=== PATIENT | male | born 1985 | race Caucasian/White ===

== ENCOUNTER 2017-10-28 18:04 | Emergency (ER) | payer OTHER ==
[~2017-10-28] VITALS: Ht 182.9 cm; Wt 59.0 kg
[~2017-10-28 18:04] MED LIST: ALBUTEROL NEBS; AMBIEN5 MG PO; CREON DR 24,001 EACH PO; CREON DR 6,000 U1 EA PO; LORAZEPAM1 MG PO; NEXIUM20 MG PO; NORCO 10MG-325MG1 EA PO; NORCO 7.5-3251 EACH PO; PANTOPRAZOLE SO40 MG PO; PEPCID20 MG PO; PROAIR HFA INH8.5 GM INH; ZITHROMAX250 MG; ZOFRAN ODT4 MG SL
[2017-10-28] MEDS ORDERED: ONDANSETRON HCL INJ 2 MG/ML VIAL IV STA (18:20)
[2017-10-28] MEDS ORDERED: SODIUM CHLORIDE 0.9% 1000ML 1,000 ML IV STA (18:20)
[2017-10-28] MEDS ORDERED: DIATRIZOATE MEGL/DIATRIZOA SOD 30 ML BTL PO ONE (18:43)
[2017-10-28] MEDS ORDERED: MORPHINE SULFATE 5 MG/ML VIAL IV ONE (19:00)
== END 2017-10-28 20:45 | disposition left against medical advice (07) ==
LOC: ER 18:04
DX: Z53.21 Procedure and treatment not carried out due to patient leaving prior to being seen by health care provider (principal)
CPT/HCPCS: 99284; J2405; J7030

== ENCOUNTER 2017-12-11 03:20 | Emergency (ER) | payer OTHER ==
[~2017-12-11] VITALS: Ht 182.9 cm; Wt 56.7 kg
--- OUTSIDE RECORDS SUMMARY | 2017-12-11 03:24 | XMS REPORT ---
Author Author [facility] Address Unknown Phone Unavailable Care Team Providers Care Project Management Engineer Name Role Phone Unavailable Unavailable Problems This patient has no known problems. Allergies, Adverse Reactions, Alerts This patient has no known allergies or adverse reactions. Medications This patient has no known medications. Results Test Description Test Time Test Comments Text Results Atomic Results Result Comments HEPATIC FUNCTION PANEL 2017-01-26 18:42:00 TOTAL PROTEIN (BEAKER) (test qoub=177) 7.8 gm/dL 6.0-8.3 ALBUMIN (BEAKER) (test osdr=9662) 4.6 g/dL 3.5-5.0 BILIRUBIN TOTAL (BEAKER) (test fyma=961) 0.7 mg/dL 0.2-1.2 BILIRUBIN DIRECT (BEAKER) (test fddr=449) 0.3 mg/dL 0.1-0.5 ALKALINE PHOSPHATASE (BEAKER) (test hxax=233) 56 U/L 40-150 AST (SGOT) (BEAKER) (test wmtu=827) 17 U/L 5-34 ALT (SGPT) (BEAKER) (test bajr=967) 17 U/L 6-55 [id number] 18:33:00* Test Item Value Reference Range Comments LIPASE (BEAKER) (test bven=257) 71 U/L 8-78 [id number] 18:33:00* Test Item Value Reference Range Comments AMYLASE (BEAKER) (test qcco=136) 123 U/L 25-125 BASIC METABOLIC [id number] 18:33:00* Test Item Value Reference Range Comments SODIUM (BEAKER) (test bekz=765) 141 meq/L 136-145 POTASSIUM (BEAKER) (test ufdr=161) 4.4 meq/L 3.5-5.1 CHLORIDE (BEAKER) (test bgnu=748) 104 meq/L 98-107 CO2 (BEAKER) (test zpno=584) 29 meq/L 22-29 BLOOD UREA NITROGEN (BEAKER) (test ztjn=408) 15 mg/dL 7-21 CREATININE (BEAKER) (test ttgf=654) 1.06 mg/dL 0.57-1.25 GLUCOSE RANDOM (BEAKER) (test okob=172) 97 mg/dL 70-105 CALCIUM (BEAKER) (test vpmu=943) 9.4 mg/dL 8.4-10.2 EGFR (BEAKER) (test jfhb=4477) 81 mL/min/1.73 sq m ESTIMATED GFR IS NOT ACCURATE CREATININE CLEARANCE IN PREDICTING GLOMERULAR FILTRATION RATE. ESTIMATED GFR IS NOT APPLICABLE FOR DIALYSIS PATIENTS. CBC W/PLT COUNT & AUTO [id number] 18:24:00* Test Item Value Reference Range Comments WHITE BLOOD CELL COUNT (BEAKER) (test zohg=794) 7.9 K/ L 4.0-10.0 RED BLOOD CELL COUNT (BEAKER) (test cviz=574) 4.38 M/ L 4.20-5.80 HEMOGLOBIN (BEAKER) (test qqrc=373) 13.7 GM/DL 13.0-16.8 HEMATOCRIT (BEAKER) (test khaa=793) 42.1 % 40.0-50.0 MEAN CORPUSCULAR VOLUME (BEAKER) (test uxaf=895) 96.1 fL 82.0-98.0 MEAN CORPUSCULAR HEMOGLOBIN (BEAKER) (test oqsg=840) 31.3 pg 27.0-33.0 MEAN CORPUSCULAR HEMOGLOBIN CONC (BEAKER) (test znyz=673) 32.6 GM/DL 32.0- 36.0 RED CELL DISTRIBUTION WIDTH (BEAKER) (test fqez=116) 12.7 % 10.3-14.2 PLATELET COUNT (BEAKER) (test myqv=900) 240 K/CU MM 150-430 MEAN PLATELET VOLUME (BEAKER) (test ncnt=057) 7.9 fL 6.5-10.5 NUCLEATED RED BLOOD CELLS (BEAKER) (test ahbf=883) 0 /100 WBC 0-0 NEUTROPHILS RELATIVE PERCENT (BEAKER) (test imyc=260) 45 % LYMPHOCYTES RELATIVE PERCENT (BEAKER) (test itgz=802) 38 % MONOCYTES RELATIVE PERCENT (BEAKER) (test grgr=736) 10 % EOSINOPHILS RELATIVE PERCENT (BEAKER) (test lvsc=512) 6 % BASOPHILS RELATIVE PERCENT (BEAKER) (test hfff=121) 1 % NEUTROPHILS ABSOLUTE COUNT (BEAKER) (test juwo=672) 3.56 K/ L 1.80-8.00 LYMPHOCYTES ABSOLUTE COUNT (BEAKER) (test doth=948) 3.00 K/ L 1.48-4.50 MONOCYTES ABSOLUTE COUNT (BEAKER) (test sgsz=264) 0.79 K/ L 0.00-1.30 EOSINOPHILS ABSOLUTE COUNT (BEAKER) (test dqhq=841) 0.49 K/ L 0.00-0.50 BASOPHILS ABSOLUTE COUNT (BEAKER) (test ujnr=895) 0.10 K/ L 0.00-0.20 0.00
--- OUTSIDE RECORDS SUMMARY | 2017-12-11 03:24 | XMS REPORT | Clinical Summary ---
Author Author [facility] Address Unknown Phone Unavailable Care Team Providers Care Silver [employer] Assembler Name Role Phone PCP Unavailable Allergies Active Allergy Reactions Severity Noted Date Comments Penicillins Other (See Comments) High 05/03/2013 Unknown reaction Morphine 01/26/2017 Seizures Current Medications Prescription Sig. Disp. Refills Start End Date Status Date LIPASE/PROTEASE/AMYLASE Take 3 tablets by mouth 3 Active (CREON ORAL) (three) times daily before meals. dicyclomine (BENTYL) 20 Take 20 mg by mouth every Active mg tablet 6 (six) hours. Active Problems Problem Noted Date Acute pancreatitis, unspecified pancreatitis type 02/27/2016 Epigastric pain 06/05/2013 Nausea & vomiting 06/05/2013 Diarrhea 06/04/2013 Colitis 06/03/2013 Chronic pancreatitis 05/08/2013 Pain 05/08/2013 Abdominal pain 05/04/2013 Encounters Date Type Specialty Care Team Description 01/26/2017 Emergency Emergency Medicine - 01/27/2017 after 12/10/2016 Social History Tobacco Use Types Packs/Day Years Used Date Former Smoker Smokeless Tobacco: Never Used Tobacco Cessation: Ready to Quit: Yes Alcohol Use Drinks/Week oz/Week Comments No Sex Assigned at Date Recorded Not on file Last Filed Vital Signs Vital Sign Reading Time Taken Blood Pressure 134/76 01/26/2017 6:00 PM CDT Pulse 65 01/26/2017 6:00 PM CDT Temperature 36.7 C (98 F) 01/26/2017 6:00 PM CDT Respiratory Rate 18 01/26/2017 6:00 PM CDT Oxygen Saturation 100% 01/26/2017 6:00 PM CDT Inhaled Oxygen - - Concentration Weight 58.1 kg (128 lb) 01/26/2017 6:00 PM CDT Height 182.9 cm (6') 01/26/2017 6:00 PM CDT Body Mass Index 17.36 01/26/2017 6:00 PM CDT Plan of Treatment Not on file Implants Implanted Type Area Drill Sharpener Operator Device Expiration Model / Identifier Date Serial / Lot Stent,Pancreatic Set Geenen Pe 5fr Stents-Per N/A: [employer] 03/08/2015 [id number] / 7cm Gw .035 Positioner Double Ended ipheral Duct / Flaps - [id number] Implanted: Qty: 1 on 06/05/2013 by Ana Singh MD Results * CBC with platelet count + automated diff (01/26/2017 6:09 PM) Component Value Ref Range WBC 7.9 4.0 - 10.0 K/ L RBC 4.38 4.20 - 5.80 M/ L Hemoglobin 13.7 13.0 - 16.8 GM/DL Hematocrit 42.1 40.0 - 50.0 % MCV 96.1 82.0 - 98.0 fL MCH 31.3 27.0 - 33.0 pg MCHC 32.6 32.0 - 36.0 GM/DL RDW 12.7 10.3 - 14.2 % Platelets 240 150 - 430 K/CU MM MPV 7.9 6.5 - 10.5 fL nRBC 0 0 - 0 /100 WBC % Neutros 45 % % Lymphs 38 % % Monos 10 % % Eos 6 % % Baso 1 % # Neutros 3.56 1.80 - 8.00 K/ L # Lymphs 3.00 1.48 - 4.50 K/ L # Monos 0.79 0.00 - 1.30 K/ L # Eos 0.49 0.00 - 0.50 K/ L # Baso 0.10 0.00 - 0.20 K/ L Specimen Performing Laboratory Blood - Arm, Right [address] [place] [address] Narrative 0.00 * CBC with platelet count + automated diff (01/26/2017 6:09 PM) Specimen Performing Laboratory Blood Narrative The following orders were created for panel order CBC with platelet count + automated diff. Procedure Abnormality Status --------- - ------ CBC with platelet count ...[[id number]] Final result Please view results for these tests on the individual orders. * Lipase (01/26/2017 6:09 PM) Component Value Ref Range Lipase 71 8 - 78 U/L Specimen Performing Laboratory Blood - Arm, [place] [address] * Amylase (01/26/2017 6:09 PM) Component Value Ref Range Amylase 123 25 - 125 U/L Specimen Performing Laboratory Blood - Arm, [place] [id number] * Liver Panel (01/26/2017 6:09 PM) Component Value Ref Range Protein, Total 7.8 6.0 - 8.3 gm/dL Albumin 4.6 3.5 - 5.0 g/dL Total Bilirubin 0.7 0.2 - 1.2 mg/dL Bilirubin, Direct 0.3 0.1 - 0.5 mg/dL Alkaline Phosphatase 56 40 - 150 U/L AST 17 5 - 34 U/L ALT 17 6 - 55 U/L Specimen Performing Laboratory Blood - Arm, [place] [id number] * Basic metabolic panel (Na, K+, Cl, CO2, Glu, Ca, BUN, Cr) (01/26/2017 6:09 PM ) Component Value Ref Range Sodium 141 136 - 145 meq/L Potassium 4.4 3.5 - 5.1 meq/L Chloride 104 98 - 107 meq/L CO2 29 22 - 29 meq/L BUN 15 7 - 21 mg/dL Creatinine 1.06 0.57 - 1.25 mg/dL Glucose 97 70 - 105 mg/dL Calcium 9.4 8.4 - 10.2 mg/dL EGFR 81Comment: ESTIMATED GFR IS NOT ACCURATE mL/min/1.73 sq m CREATININE CLEARANCE IN PREDICTING GLOMERULAR FILTRATION RATE. ESTIMATED GFR IS NOT APPLICABLE FOR DIALYSIS PATIENTS. Specimen Performing Laboratory Blood - Arm, [address] [address] after 12/10/2016
--- OUTSIDE RECORDS SUMMARY | 2017-12-11 03:24 | XMS REPORT | Clinical Summary ---
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 Disp. Refills Start End Date Status Date pancrelipase, Take 72,000 units of Active wlndfh-pwcogeyp-ibvbtlc, lipase by mouth 3 (three) (CREON) 24,000-76,000 times a day with meals. -120,000 unit capsule,delayed release(DR/EC) capsule zolpidem (AMBIEN) 10 mg Take 10 mg by mouth Active tablet nightly. ALPRAZolam (XANAX) 2 MG Take 2 mg by mouth 2 Active tablet (two) times a day as needed for anxiety. CIPROFLOXACIN/CIPROFLOXA Take by mouth. Active HCL (CIPROFLOXACIN, MIXTURE, ORAL) dicyclomine (BENTYL) 10 Take 10 mg by mouth 4 Active MG capsule (four) times a day before meals and nightly. ondansetron (ZOFRAN) 8 MG Take 8 mg by mouth every Active tablet 8 (eight) hours as needed for nausea or vomiting. promethazine (PHENERGAN) Insert 25 mg into the Active 25 MG suppository rectum every 6 (six) hours as needed for nausea or vomiting. ondansetron ODT (ZOFRAN Take 1 tablet (4 mg 10 tablet 0 12/10/01/25 Active ODT) 4 MG disintegrating total) by mouth every 8 18 18 tablet (eight) hours as needed for nausea or vomiting for up to 30 days. traMADol (ULTRAM) 50 mg Take 1 tablet (50 mg 20 tablet 0 04/30/ tablet total) by mouth every 8 17 17 (eight) hours as needed for moderate pain for up to 20 days. promethazine (PHENERGAN) Insert 1 suppository (25 10 0 04/30/20 25 MG suppository mg total) into the rectum suppository 17 17 every 6 (six) hours as needed for nausea or vomiting for up to 30 days. CLINDAMYCIN HCL ORAL Take by mouth. 06/10/20 Discontin 17 ued metroNIDAZOLE (FLAGYL) Take 1 tablet (500 mg 42 tablet 0 06/10/20 500 MG tablet total) by mouth 3 (three) 17 17 times a day for 14 days. metoclopramide (REGLAN) Take 1 tablet (10 mg 30 tablet 0 06/10/20 10 MG tablet total) by mouth every 6 17 17 (six) hours for 30 days. Active Problems Problem Noted Date Acute on chronic pancreatitis 11/30/2017 Enteritis 06/11/2017 Abdominal pain 06/10/2017 Idiopathic acute pancreatitis 12/05/2016 Encounters Date Type Specialty Care Team Description 12/10/2017 Emergency Emergency Medicine Rafael Tracy DO Generalized abdominal pain (Primary Dx); Polysubstance abuse 11/30/2017 Emergency General Internal Medicine Rafael Tracy DO Acute on chronic Alee Blevins MD pancreatitis (Primary Dx) 06/09/2017 [facility] General Internal Medicine Tono Healy, Abdominal pain, - Encounter MD unspecified location 06/12/2017 Beckie Sanders MD (Primary Dx); C. difficile colitis 04/29/2017 Emergency Emergency Medicine Ravinder English, Chronic pain syndrome - (Primary Dx); 04/30/2017 Generalized abdominal pain 02/12/2017 Hospital Emergency Medicine Physician, Emergency, Encounter AshtynrerMacario DO 01/18/2017 [facility] Emergency Medicine Physician, Emergency, Encounter Jose De Jesus Jansen MD 12/27/2016 Documentation General Surgery Paulina Milligan RN after 12/10/2016 Family History Medical History Relation Name Comments Colon cancer Father Multiple sclerosis Mother Relation Name Status Comments Father Mother Social History Tobacco Use Types Packs/Day Years Used Date Former Smoker Smokeless Tobacco: Never Used Alcohol Use Drinks/Week oz/Week Comments No Sex Assigned at Date Recorded Not on file Last Filed Vital Signs Vital Sign Reading Time Taken Blood Pressure 163/96 12/10/2017 8:03 PM VENDOR ANALYST Pulse 65 12/10/2017 8:03 PM VENDOR ANALYST Temperature 36.8 C (98.3 F) 12/10/2017 8:03 PM VENDOR ANALYST Respiratory Rate 20 12/10/2017 8:03 PM VENDOR ANALYST Oxygen Saturation 98% 12/10/2017 8:03 PM VENDOR ANALYST Inhaled Oxygen - - Concentration Weight 64 kg (141 lb) 06/10/2017 1:00 PM CDT Height 182.9 cm (6') 11/30/2017 12:41 AM VENDOR ANALYST Body Mass Index 19.12 06/10/2017 1:00 PM CDT Plan of Treatment Health Maintenance Due Date Last Done Comments INFLUENZA VACCINE 05/08/2017 Results * Urinalysis screen and microscopy, with reflex to culture (12/10/2017 9:37 PM) Only the most recent of 3 results within the time period is included. Component Value Ref Range Specimen site Clean catch Color, UA Straw Appearance, UA Clear Specific gravity, UA 1.004 1.001 - 1.035 pH, UA 9.0 5.0 - 8.5 Protein, UA Negative Negative Glucose, UA Negative Negative Ketones, UA Negative Negative Bilirubin, UA Negative Negative Blood, UA Negative Negative Nitrite, UA Negative Negative Urobilinogen, UA Negative <2.0 Leukocyte esterase, UA Negative Negative WBC, UA None seen 0 - 1 /HPF RBC, UA 0-5 0 - 1 /HPF Bacteria, UA None seen None seen Yeast, UA None seen Yeast with pseudohyphae, None seen UA Specimen Performing Laboratory Urine [facility] DEPARTMENT OF PATHOLOGY AND GENOMIC MEDICINE [address] [place] [address] * Estimated GFR (12/10/2017 9:37 PM) Only the most recent of 7 results within the time period is included. Component Value Ref Range GFR Non Af Amer >90 mL/min/1.73 m2 GFR Af Amer >90 mL/min/1.73 m2 Comment: Chronic kidney disease: <60 mL/min/1.73m2 Kidney failure: <15 mL/min/1.73m2 The estimated GFR is calculated from the IDMS-traceable Modification of Diet in Renal Disease Equation. The accuracy of the calculation is poor when the creatinine is normal. Calculated values >90 mL/min/1.73m2 are not reported. This equation has not been validated in children (<18 years), women, the elderly (>70 years), or ethnic groups other than Caucasians and Americans. Specimen Performing Laboratory Plasma specimen [facility] DEPARTMENT OF PATHOLOGY AND [address] [place] [address] * Urine drugs of abuse screen (12/10/2017 9:37 PM) Only the most recent of 2 results within the time period is included. Component Value Ref Range Amphetamine screen, urine Negative Methamphetamine screen, Negative urine Barbiturate screen, urine Negative Benzodiazepine screen, Positive (A) urine Cocaine screen, urine Negative Methadone screen, urine Negative Opiates screen, urine Negative Phencyclidine screen, Negative urine Cannabinoid screen, urine Positive (A) Tricyclic screen, urine Negative Comment: Drug screen minimum concentration of detectability Amphetamines 1000 ng/mL Methamphetamines 1000 ng/mL Barbiturates 300 ng/mL Benzodiazepines 300 ng/mL Cocaine 300 ng/mL Methadone 3 00 ng/mL Opiates 300 ng/mL Phencyclidine 25 ng/mL Cannabinoids 50 ng/mL Tricyclics 1000 ng/mL Negative test results indicates presumptive evidence of lack of clinically significant drug concentration in this urine specimen. Positive test results are presumptive evidence of clinically significant drug concentration in this urine specimen. Testing performed for medical purposes only. Specimen Performing Laboratory Urine [facility] PATHOLOGY [address] [place] [address] * Partial thromboplastin time, activated (12/10/2017 9:37 PM) Component Value Ref Range PTT 30.4 23.0 - 36.0 sec Comment: PTT therapeutic range for unfractionated heparin is 61.0-112.0 seconds which corresponds to Anti-Xa 0.3-0.7 U/ml. Specimen Performing Laboratory Blood [facility] PATHOLOGY AND [address] [facility] [id number] [place] [address] [place] [address] * Prothrombin time with INR (12/10/2017 9:37 PM) Component Value Ref Range Prothrombin time 13.2 12.0 - 15.0 sec INR 1.0 Comment: The International Normalized Ratio (INR) is a therapeutic monitoring tool for patients who are stable on oral anticoagulant therapy. An INR of 2.0-3.0 is suggested for deep vein thrombosis/pulmonary embolism. Specimen Performing Laboratory Blood [facility] PATHOLOGY AND [facility] [id number] [place] [address] [place] [address] * Urine culture (12/10/2017 9:37 PM) Only the most recent of 2 results within the time period is included. Component Value Ref Range Urine culture SEE COMMENTComment: Bacteriuria screen negative. Specimen Performing Laboratory Urine [facility] PATHOLOGY AND [facility] [id number] [place] [address] [place] [address] * Lipase level (12/10/2017 9:37 PM) Only the most recent of 7 results within the time period is included. Component Value Ref Range Lipase 58 13 - 60 U/L Specimen Performing Laboratory Plasma specimen [facility] [address] [place] [address] * Comprehensive metabolic panel (12/10/2017 9:37 PM) Only the most recent of 6 results within the time period is included. Component Value Ref Range Sodium 140 135 - 148 mEq/L Potassium 3.6 3.5 - 5.0 mEq/L Chloride 99 98 - 112 mEq/L CO2 29 24 - 31 mEq/L Anion gap 12 7 - 15 mEq/L Comment: Starting from January , anion gap calculation no longer incorporates potassium. Please note the change. BUN 7 6 - 20 mg/dL Creatinine 0.9 0.7 - 1.2 mg/dL Glucose 90 65 - 99 mg/dL Calcium 9.9 8.3 - 10.2 mg/dL Protein 7.7 6.3 - 8.3 g/dL Comment: 4.6-7.0 g/dL 1 week 4.4-7.6 g/dL 7 months-1year 5.1-7.3 g/dL 1-2 years 5.6-7.5 g/dL >3 years 6.0-8.0 g/dL 18-150 6.3-8.3 g/dL Albumin 4.5 3.5 - 5.0 g/dL A/G ratio 1.4 0.7 - 3.8 Alkaline phosphatase 62 40 - 129 U/L AST 21 10 - 50 U/L ALT 22 5 - 50 U/L Total bilirubin 0.6 0.0 - 1.2 mg/dL Specimen Performing Laboratory Plasma specimen [facility] AND [facility] [id number] [place] [address] [place] [address] * Smear review (12/10/2017 9:11 PM) Component Value Ref Range Platelet slide review Marc adequate Specimen Performing Laboratory [facility] DEPARTMENT OF PATHOLOGY AND GENOMIC [facility] [address] [place] [address] * CBC with platelet and differential (12/10/2017 9:11 PM) Only the most recent of 7 results within the time period is included. Component Value Ref Range WBC 5.41 4.50 - 11.00 k/uL RBC 4.24 (L) 4.40 - 6.00 m/uL HGB 13.0 (L) 14.0 - 18.0 g/dL HCT 38.2 (L) 41.0 - 51.0 % MCV 90.1 82.0 - 100.0 fL MCH 30.7 27.0 - 34.0 pg MCHC 34.0 31.0 - 37.0 g/dL RDW - SD 45.1 37.0 - 55.0 fL MPV 11.8 8.8 - 13.2 fL Platelet count 232 150 - 400 k/uL Nucleated RBC 0.00 /100 WBC Neutrophils 57.5 39.0 - 69.0 % Lymphocytes 27.0 25.0 - 45.0 % Monocytes 11.8 (H) 0.0 - 10.0 % Eosinophils 2.6 0.0 - 5.0 % Basophils 0.9 0.0 - 1.0 % Immature granulocytes 0.2Comment: "Immature granulocytes" 0.0 - 1.0 % (promyelocytes, myelocytes, metamyelocytes) Specimen Performing Laboratory Blood [facility] DEPARTMENT OF PATHOLOGY AND GENOMIC MEDICINE [address] [place] [address] * Manual differential (06/11/2017 6:48 AM) Component Value Ref Range Manual differential PERFORMED Neutrophils 61.0 36.0 - 66.0 % Lymphocytes 28.0 24.0 - 44.0 % Monocytes 8.0 (H) 0.0 - 6.0 % Eosinophils 2.0 0.0 - 6.0 % Basophils 1.0 0.0 - 1.2 % Metamyelocytes 0 0 - 1 % Promyelocytes 0 0 - 1 % Platelet slide review Marc adequate Specimen Performing Laboratory [facility] AND [facility]OMIC MEDICINE [address] [facility] [facility] [place] [address] * Sedimentation rate (06/11/2017 6:48 AM) Component Value Ref Range Sedimentation rate 0 0 - 10 mm/hr Specimen Performing Laboratory Blood [facility] OF [facility]OLOGY AND GENOMIC MEDICINE [address] [place] [address] * Magnesium level (06/11/2017 6:48 AM) Component Value Ref Range Magnesium 2.10 1.60 - 2.40 mg/dL Specimen Performing Laboratory Plasma specimen [facility] OF [facility]OLOGY AND GENOMIC MEDICINE [address] [facility] [place] [address] * Hepatic function panel (06/11/2017 6:48 AM) Component Value Ref Range Albumin 3.5 3.2 - 5.0 g/dL Total bilirubin 1.3 (H) 0.2 - 1.2 mg/dL Bilirubin direct 0.3 0.0 - 0.4 mg/dL Alkaline phosphatase 50 30 - 120 U/L Protein 6.8 6.3 - 8.2 g/dL ALT 15 (L) 30 - 65 U/L AST 8 (L) 15 - 37 U/L Specimen Performing Laboratory Plasma specimen [facility] OF [facility]OLOGY AND GENOMIC MEDICINE [address] [place] [address] * Basic metabolic panel (06/11/2017 6:48 AM) Component Value Ref Range Sodium 139 135 - 150 mEq/L Potassium 3.8 3.5 - 5.0 mEq/L Chloride 106 100 - 109 mEq/L CO2 28 24 - 32 mmol/L Anion gap 5 (L) 7 - 15 mEq/L Comment: Starting from January , anion gap calculation no longer incorporates potassium. Please note the change. BUN 4 (L) 7 - 18 mg/dL Creatinine 0.8 0.8 - 1.5 mg/dL Glucose 86 65 - 100 mg/dL Calcium 8.8 8.6 - 10.7 mg/dL Specimen Performing Laboratory Plasma specimen [facility] OF [facility]OLOGY AND GENOMIC MEDICINE [address] [facility] [place] [address] * Salmonella/shigella culture (06/10/2017 6:10 PM) Component Value Ref Range Salmonella/shigella No Aeromonas isolated culture isolate No Aeromonas isolated Comment: Specimen Information Specimen Source: Stool Specimen Site: Nonpreserved Specimen Performing Laboratory Stool - Nonpreserved [facility] DEPARTMENT OF PATHOLOGY AND GENOMIC MEDICINE [address] [place] [address] * Gastrointestinal panel (06/10/2017 6:10 PM) Component Value Ref Range Gastrointestinal panel Negative for all pathogens tested: Negative for Salmonella Negative for Campylobacter Negative for Diarrheagenic E coli/Shigella Negative for Shiga-like toxin-producing E coli Negative for Plesiomonas shigelloides Negative for Yersinia enterocolitica Negative for Vibrio species Negative for Clostridium difficile (Toxin A/B) Negative for Cryptosporidium Negative for Giardia lamblia Negative for Cyclospora cayeteanensis Negative for Entamoeba histolytica Negative for Adenovirus F 40/41 Negative for Astrovirus Negative for Norovirus GI/GII Negative for Rotavirus A Negative for Sapovirus Negative for Clostridium difficile toxin Negative for E coli 0157 This real-time PCR assay detects the presence of nucleic acids (RNA or DNA) for the gastrointestinal pathogens listed. A result of "Not-detected" does not exclude the possibility of the presence of one or more pathogens at concentrations less than the detectable limits of the assay. Comment: Specimen Information Specimen Source: Stool Specimen Site: Nonpreserved Specimen Performing Laboratory Stool - [facility] [place] [address] * Fecal leukocytes smear (06/10/2017 6:10 PM) Component Value Ref Range Fecal leukocytes Few fecal leukocytes Comment: Specimen Information Specimen Source: Stool Specimen Site: Nonpreserved Specimen Performing Laboratory [facility] [place] [address] * Calprotectin, stool (06/10/2017 6:06 PM) Component Value Ref Range Calprotectin, stool <16 <=50 ug/g Comment: INTERPRETIVE INFORMATION: Calprotectin, Fecal 50 ug/g or less: Normal 51-120 ug/g: Borderline elevated, test should be re-evaluated in 4-6 weeks. 121 ug/g or greater: Abnormal Performed by [employer], [address] [place] [address] [email or web address], Riccardo Silva MD - Lab. Director Specimen Performing Laboratory [facility] [address] [place] [address] * CT Abdomen Pelvis W Contrast (06/10/2017 3:17 AM) Specimen [place] [address] Narrative Examination:CT ABDOMEN PELVIS W CONTRAST Clinical History: abdominal pain Comparison: None. Findings: CT scans are performed using radiation dose reduction techniques.Technical factors are evaluated and adjusted to ensure appropriate moderation of exposure. Automated dose management technology is applied to adjust radiation exposure while achieving a diagnostic quality image. CT scan of the abdomen and pelvis was performed after intravenous contrast. The liver, spleen, pancreas, and adrenal glands are unremarkable. The patient is status post cholecystectomy. The kidneys are within normal limits without hydronephrosis. The appendix is not visualized. There are prominent but nondilated fluid-filled loops of small bowel noted with slight wall prominence or thickening noted. No gross bowel dilatation is seen. No free air or fluid is seen. Urinary bladder is unremarkable. The visualized lung bases are clear. IMPRESSION: 1. Nonspecific but nondilated fluid-filled loops of prominent small bowel with slight wall prominence or thickening. This can be seen with gastroenteritis or diffuse enteritis. [facility]-[id number] Procedure Note [facility], Radiology Results Incoming - 06/10/2017 3:22 AM CDT Examination: CT ABDOMEN PELVIS W CONTRAST Clinical History: abdominal pain Comparison: None. Findings: CT scans are performed using radiation dose reduction techniques. Technical factors are evaluated and adjusted to ensure appropriate moderation of exposure. Automated dose management technology is applied to adjust radiation exposure while achieving a diagnostic quality image. CT scan of the abdomen and pelvis was performed after intravenous contrast. The liver, spleen, pancreas, and adrenal glands are unremarkable. The patient is status post cholecystectomy. The kidneys are within normal limits without hydronephrosis. The appendix is not visualized. There are prominent but nondilated fluid-filled loops of small bowel noted with slight wall prominence or thickening noted. No gross bowel dilatation is seen. No free air or fluid is seen. Urinary bladder is unremarkable. The visualized lung bases are clear. IMPRESSION: 1. Nonspecific but nondilated fluid-filled loops of prominent small bowel with slight wall prominence or thickening. This can be seen with gastroenteritis or diffuse enteritis. [facility]-[id number] * Lactic acid level (06/09/2017 9:17 PM) Only the most recent of 2 results within the time period is included. Component Value Ref Range Lactic acid 1.3 0.5 - 2.2 mmol/L Specimen Performing Laboratory Blood [facility] AND GENOMIC MEDICINE [address] [place] [address] * Gram stain (06/09/2017 6:13 PM) Only the most recent of 2 results within the time period is included. Component Value Ref Range Gram stain result No WBC's or organisms seen. Comment: Specimen Information Specimen Source: Urine Specimen Site: Clean catch Specimen Performing Laboratory Urine [facility] DEPARTMENT OF PATHOLOGY AND GENOMIC MEDICINE [address] [place] [address] * Bilirubin direct (06/09/2017 6:13 PM) Component Value Ref Range Bilirubin direct 0.2 0.0 - 0.4 mg/dL Specimen Performing Laboratory Plasma specimen [facility] OF [facility]Y AND GENOMIC MEDICINE [address] [facility] [place] [address] * Amylase level (06/09/2017 6:13 PM) Only the most recent of 3 results within the time period is included. Component Value Ref Range Amylase 86 34 - 122 U/L Specimen Performing Laboratory Plasma specimen [facility] OF [facility]Y AND GENOMIC MEDICINE [address] [facility] [place] [address] * ECG ED Preliminary Interpretation - NOT AN ORDER (04/30/2017 1:46 AM) Angelito English MD 04/30/20171:46 AM ECG ED Preliminary Interpretation - Not an Order Performed by: RAVINDER ENGLISH Authorized by: RAVINDER ENGLISH ECG reviewed by ED Physician in the absence of a director of content and programming: yes Previous ECG: Previous ECG:Unavailable Interpretation: Interpretation: normal Rate: ECG rate assessment: normal Rhythm: Rhythm: sinus rhythm Ectopy: Ectopy: none QRS: QRS axis:Normal QRS intervals:Normal Conduction: Conduction: normal ST segments: ST segments:Normal T waves: T waves: normal Other findings: Other findings: early repolarization Comments: Borderline short pr * CK-MB (04/30/2017 12:20 AM) Component Value Ref Range CK-MB 1.4 1.0 - 10.4 ng/mL Specimen Performing Laboratory Plasma specimen [facility] DEPARTMENT OF PATHOLOGY AND GENOMIC MEDICINE [address] [place] [address] * Troponin (04/30/2017 12:20 AM) Component Value Ref Range Troponin <0.300 0.000 - 0.300 ng/mL Comment: 0.30 - 1.49 ng/ml May indicate increased risk of acute coronary syndrome. >=1.5 ng/ml Consistent with acute myocardial infarction. The diagnostic value of a single normal or non-diagnostic result is questionable. Serial samples at 2-6 hour intervals are required to rule out acute myocardial injury. Specimen Performing Laboratory Plasma specimen [facility] DEPARTMENT OF PATHOLOGY AND [facility] MED[facility] [address] [place] [address] * Alcohol level, blood (04/30/2017 12:20 AM) Component Value Ref Range Alcohol None Detected mg/dL Comment: Normal None Detected Legal Intoxication in [place] 80 mg/dL (0.08%) - Whole Blood Toxic Concentration 200 mg/dL (0.2%) Potentially Fatal 350 - 500 mg/dL (0.35 - 0.5%) Alcohol percent None Detected % Specimen Performing Laboratory Plasma specimen [facility] DEPARTMENT OF PATHOLOGY AND GENOMIC MEDICINE [address] [place] [address] * ECG 12 lead (04/29/2017 10:44 PM) Component Value Ref Range Ventricular rate 67 Atrial rate 67 AL interval 90 QRSD interval 82 QT interval 356 QTC interval 376 P axis 1 -19 QRS axis 1 86 T wave axis 66 EKG impression Sinus rhythm with short AL-Early repolarization-Otherwise normal ECG-In automated comparison with ECG of 07-OCT-2015 21:10,-No significant change was found- Specimen Performing Laboratory [facility] MUSE [address] [place] [address] * CT Abdomen Pelvis Wo Contrast (02/12/2017 6:01 PM) Specimen Performing Laboratory [facility] [address] [place] [address] Narrative EXAMINATION: CT ABDOMEN WITHOUT CONTRAST. All CT scans are performed using radiation dose reduction techniques. Technical factors are evaluated and adjusted to ensure appropriate moderation of exposure. Automated dose management technology is supplied to adjust the radiation dose to minimize exposure while achieving a diagnostic quality image. CLINICAL HISTORY: Abdominal pain N/V/D for the past several days along with LUQ pain, unknown fever COMPARISON: CT abdomen 12/05/2016 TECHNIQUE: DLP. Multiple axial images were obtained of the abdomen and pelvis.IV contrast was not given. Additional sagittal and coronal reformatted images were obtained. FINDINGS: The heart is normal in size. The lower lungs are clear. The liver density is homogeneous. The portal vein measures 16 mm in diameter. There is no evidence of intrahepatic biliary dilatation. The gallbladder is surgically absent.. The pancreas is unremarkable. The spleen is normal in appearance. The adrenal glands are unremarkable. The kidneys are normal in size.There are no kidney stones. There is no hydronephrosis. The appendix is not visualized. The bowel caliber is normal and there is no bowel wall thickening. There is no retroperitoneal adenopathy. The aorta and vena cava are unremarkable. There is no free fluid. There is no free air. There is an old compression fracture involving the superior vertebral endplate of L1.. The urinary bladder is unremarkable. IMPRESSION: Unremarkable CT of the abdomen and pelvis. [id number] Procedure Note Hm Interface, Radiology Conversion - 02/12/2017 6:15 PM CDT EXAMINATION: CT ABDOMEN WITHOUT CONTRAST. All CT scans are performed using radiation dose reduction techniques. Technical factors are evaluated and adjusted to ensure appropriate moderation of exposure. Automated dose management technology is supplied to adjust the radiation dose to minimize exposure while achieving a diagnostic quality image. CLINICAL HISTORY: Abdominal pain N/V/D for the past several days along with LUQ pain, unknown fever COMPARISON: CT abdomen 12/05/2016 TECHNIQUE: DLP . Multiple axial images were obtained of the abdomen and pelvis. IV contrast was not given. Additional sagittal and coronal reformatted images were obtained. FINDINGS: The heart is normal in size. The lower lungs are clear. The liver density is homogeneous. The portal vein measures 16 mm in diameter. There is no evidence of intrahepatic biliary dilatation. The gallbladder is surgically absent.. The pancreas is unremarkable. The spleen is normal in appearance. The adrenal glands are unremarkable. The kidneys are normal in size.There are no kidney stones. There is no hydronephrosis. The appendix is not visualized. The bowel caliber is normal and there is no bowel wall thickening. There is no retroperitoneal adenopathy. The aorta and vena cava are unremarkable. There is no free fluid. There is no free air. There is an old compression fracture involving the superior vertebral endplate of L1.. The urinary bladder is unremarkable. IMPRESSION: Unremarkable CT of the abdomen and pelvis. [facility] [id number] * Urine culture screen (02/12/2017 11:20 AM) Only the most recent of 2 results within the time period is included. Component Value Ref Range Color, UA Yellow Appearance, UA Clear Specific gravity, UA 1.015 1.001 - 1.035 pH, UA 5.0 5.0 - 8.5 Protein, UA Negative Negative Glucose, UA Negative Negative Ketones, UA Negative Negative Bilirubin, UA Negative Negative Blood, UA Trace (A) Negative Nitrite, UA Negative Negative Urobilinogen, UA Negative <2.0 Leukocyte esterase, UA Negative Negative Epithelial cells, UA Few /HPF WBC, UA 1 0 - 1 /HPF RBC, UA 1 0 - 1 /HPF Bacteria, UA Trace None seen Yeast, UA None seen Yeast with pseudohyphae, None seen UA Urine culture isolate Mixed Gram positive jhon 10-3 cfu/ml Specimen Performing Laboratory Urine [facility] DEPARTMENT OF PATHOLOGY AND GENOMIC MEDICINE [address] [place] [id number] Narrative Specimen Site is : Clean catch Specimen Source is : Urine * Urine culture screen (01/18/2017 4:05 PM) Component Value Ref Range Urine culture screen Bacteriuria screen negative. isolate Specimen Performing Laboratory Urine [facility] DEPARTMENT OF PATHOLOGY AND GENOMIC MEDICINE [address] [place] [id number] Narrative Specimen Site is : Clean catch Specimen Source is : Urine after 12/10/2016 Insurance Payer Benefit Subscriber ID Type Phone Address Plan / Group AETNA AETNA xxxxxxxxxx HMO HMO,POS,EP O, MC/EC
[2017-12-11] MEDS ORDERED: SODIUM CHLORIDE 0.9% 1000ML 1,000 ML IV SCH (03:45)
[2017-12-11] MEDS ORDERED: FAMOTIDINE 20 MG/2 ML VIAL IV STA (03:46)
[2017-12-11] MEDS ORDERED: ONDANSETRON HCL INJ 2 MG/ML VIAL IV STA (03:46)
[2017-12-11] MEDS ORDERED: SODIUM CHLORIDE 0.9% 1000ML 1,000 ML IV STA ×2 (04:06→05:05)
[2017-12-11 06:57] VITALS: BP 132/68
== END 2017-12-11 06:55 | disposition left against medical advice (07) ==
LOC: FSED 03:20
DX: R11.2 Nausea with vomiting, unspecified (principal); R19.7 Diarrhea, unspecified; K86.1 Other chronic pancreatitis; R10.13 Epigastric pain; R10.12 Left upper quadrant pain; Z80.0 Family history of malignant neoplasm of digestive organs
CPT/HCPCS: 74176; 80053; 85025; 96360; 96374; 96375; 99283; J2405; J7030

== ENCOUNTER 2017-12-12 15:27 | Emergency (ER) | payer OTHER ==
[~2017-12-12] VITALS: Ht 182.9 cm; Wt 56.7 kg
== END 2017-12-12 15:55 | disposition left against medical advice (07) ==
LOC: ER 15:27
DX: R10.84 Generalized abdominal pain (principal); R11.2 Nausea with vomiting, unspecified; R19.7 Diarrhea, unspecified; K86.9 Disease of pancreas, unspecified
CPT/HCPCS: 99281

== ENCOUNTER 2020-10-29 00:47 | Inpatient (IN) | payer OTHER ==
[~2020-10-29] VITALS: Ht 182.9 cm; Wt 61.2 kg
[2020-10-29] MEDS ORDERED: ONDANSETRON HCL INJ 2MG/ML 2ML 2 MG/ML VIAL IV STA (00:57)
[2020-10-29] MEDS ORDERED: FAMOTIDINE 20 MG/2 ML VIAL IV STA (00:57)
[2020-10-29] MEDS ORDERED: KETOROLAC TROMETHAMINE 30 MG/ML VIAL IV STA (00:57)
[2020-10-29] MEDS ORDERED: KETOROLAC TROMETHAMINE 30 MG/ML VIAL ONE (01:18)
[2020-10-29] MEDS ORDERED: FAMOTIDINE 20 MG/2 ML VIAL IV ONE (01:18)
[2020-10-29] MEDS ORDERED: ONDANSETRON HCL INJ 2MG/ML 2ML 2 MG/ML VIAL ONE (01:18)
[2020-10-29] MEDS ORDERED: SODIUM CHLORIDE 0.9% 1000ML 1,000 ML ONE (01:18)
[2020-10-29] MEDS ORDERED: FENTANYL CITRATE/PF 100MCG/2 ML INJ IV ONE ×2 (01:30→02:00)
[2020-10-29] MEDS ORDERED: ONDANSETRON HCL INJ 2MG/ML 2ML 2 MG/ML VIAL IV PRN (01:30)
[2020-10-29] MEDS: SODIUM CHLORIDE 0.9% 1000ML 1,000 ML IV SCH ×2 (01:33→09:30)
[2020-10-29] MEDS ORDERED: FENTANYL CITRATE/PF 100MCG/2 ML INJ ONE (01:40)
[2020-10-29] MEDS ORDERED: SODIUM CHLORIDE 0.9% 50ML 50 ML ONE (02:17)
[2020-10-29] MEDS ORDERED: IOPAMIDOL 370 MG/ML 200 ML INFUS..BTL INJ ONE (02:18)
[2020-10-29] MEDS: HYDROMORPHONE 1MG/1ML INJ IV PRN ×3 (03:29→09:40)
[2020-10-29 03:30] VITALS: BP 130/85
[2020-10-29] MEDS ORDERED: HYDROMORPHONE HC2 MG PO (03:56)
[2020-10-29 04:00] VITALS: BP 130/85
[2020-10-29 08:05] VITALS: BP 140/93
[2020-10-29 08:45] VITALS: BP 140/93
[2020-10-29] MEDS ORDERED: LORAZEPAM INJ 2 MG/ML VIAL IV PRN (09:00)
[2020-10-29 09:59] LABS: BASOPHILS # (AUTO) 0.1 (0.0-0.1); BASOPHILS % 1.3 % (0.0-1.0); EOSINOPHILS # (AUTO) 0.6 (0.0-0.4); EOSINOPHILS % 7.7 % (0.0-6.0); HEMATOCRIT 41.4 % (38.2-49.6); HEMOGLOBIN 13.7 g/dL (14.0-18.0); LYMPHOCYTES # (AUTO) 2.1 (1.0-3.2); LYMPHOCYTES % 27.9 % (18.0-39.1); MEAN CORPUSCULAR HEMOGLOBIN 30.7 pg (28-32); MEAN CORPUSCULAR HGB CONC 33.1 g/dL (31-35); MEAN CORPUSCULAR VOLUME 92.8 fL (81-99); MONOCYTES # (AUTO) 0.9 (0.2-0.8); MONOCYTES % 11.7 % (4.4-11.3); NEUTROPHILS # (AUTO) 3.8 (2.1-6.9); PLATELET COUNT 269 x10e3/uL (140-360); RED BLOOD COUNT 4.46 x10e6/uL (4.3-5.7); RED CELL DISTRIBUTION WIDTH 12.7 % (11.7-14.4)
[2020-10-29 10:19] LABS: ANION GAP 13.1 mmol/L (8-16); BLOOD UREA NITROGEN 8 mg/dL (7-26); BUN/CREATININE RATIO 10 (6-25); CARBON DIOXIDE 22 mmol/L (22-29); CHLORIDE 110 mmol/L (98-107); CREATININE, SERUM 0.77 mg/dL (0.72-1.25); EST GLOMERULAR FILTRATION RATE > 60 ML/MIN (60-); GLUCOSE 87 mg/dL (74-118); POTASSIUM 4.1 mmol/L (3.5-5.1); SODIUM 141 mmol/L (136-145)
[2020-10-29 11:41] VITALS: BP 133/85
[2020-10-29 11:41] LABS: AMYLASE 151 U/L (25-125); LIPASE 58 U/L (8-78)
== END 2020-10-29 12:45 | disposition home or self-care (01) | DRG 392 ==
LOC: FSED 00:58 → ERHOLD 01:28 → MED/SURG2 02:15
PROVIDERS: ADMIT Internal Medicine; ATTEND Internal Medicine
DX: R10.9 Unspecified abdominal pain (principal); Z20.822 Contact with and (suspected) exposure to COVID-19
CPT/HCPCS: 36415; 74177; 80048; 80053; 80307; 81003; 82150; 83690; 85025; 99284; J1170; J1885; J2060; J2405; J3010; J7030; Q9967; U0002

== ENCOUNTER 2020-10-31 11:40 | Emergency (ER) | payer OTHER ==
[~2020-10-31] VITALS: Ht 182.9 cm; Wt 61.2 kg
[~2020-10-31 11:40] MED LIST changes: +HYDROMORPHONE HC2 MG PO
[2020-10-31] MEDS ORDERED: SODIUM CHLORIDE 0.9% 1000ML 1,000 ML IV STA (11:54)
[2020-10-31] MEDS ORDERED: DICYCLOMINE HCL 20 MG/2 ML VIAL IM ONE (12:00)
[2020-10-31] MEDS ORDERED: PROMETHAZINE 25MG/ NS 50ML (IV) IV NR (12:00)
[2020-10-31 12:01] LABS: BASOPHILS # (AUTO) 0.1 (0.0-0.1); EOSINOPHILS # (AUTO) 0.6 (0.0-0.4); EOSINOPHILS % 6.4 % (0.0-6.0); HEMATOCRIT 45.8 % (38.2-49.6); HEMOGLOBIN 15.1 g/dL (14.0-18.0); LYMPHOCYTES # (AUTO) 2.1 (1.0-3.2); LYMPHOCYTES % 23.4 % (18.0-39.1); MEAN CORPUSCULAR HEMOGLOBIN 30.8 pg (28-32); MEAN CORPUSCULAR VOLUME 93.5 fL (81-99); MONOCYTES # (AUTO) 0.9 (0.2-0.8); NEUTROPHILS # (AUTO) 5.2 (2.1-6.9); NEUTROPHILS % 58.9 % (38.7-80.0); PLATELET COUNT 309 x10e3/uL (140-360); RED CELL DISTRIBUTION WIDTH 12.6 % (11.7-14.4)
[2020-10-31 12:20] LABS: INR 0.9; PROTHROMBIN TIME 12.7 seconds (11.9-14.5)
[2020-10-31] MEDS ORDERED: SODIUM CHLORIDE 0.9% 50ML 0 ML ONE (12:56)
[2020-10-31] MEDS ORDERED: IOPAMIDOL 370 MG/ML 200 ML INFUS..BTL INJ ONE (12:56)
[2020-10-31] MEDS ORDERED: KETOROLAC TROMETHAMINE 30 MG/ML VIAL IV NR (13:00)
[2020-10-31] MEDS ORDERED: DIPHENHYDRAMINE HCL INJ 50 MG/ML VIAL IV NR (13:00)
== END 2020-10-31 12:50 | disposition home or self-care (01) ==
LOC: ER 11:56
DX: R10.13 Epigastric pain (principal); R11.2 Nausea with vomiting, unspecified; R19.7 Diarrhea, unspecified; F41.9 Anxiety disorder, unspecified; J45.909 Unspecified asthma, uncomplicated
CPT/HCPCS: 36415; 85025; 85610; 85730; 99284; J0500; J1200; J1885; J2550; J7030; Q9967

== ENCOUNTER 2020-11-04 21:22 | Emergency (ER) | payer OTHER ==
[~2020-11-04] VITALS: Ht 182.9 cm; Wt 61.2 kg
[2020-11-04] MEDS ORDERED: ONDANSETRON HCL INJ 2MG/ML 2ML 2 MG/ML VIAL IV STA (21:51)
[2020-11-04] MEDS ORDERED: MORPHINE SULFATE 5 MG/ML VIAL IV ONE (22:00)
[2020-11-04] MEDS ORDERED: KETOROLAC TROMETHAMINE 30 MG/ML VIAL IV ONE (22:30)
[2020-11-04] MEDS ORDERED: ONDANSETRON HCL INJ 2MG/ML 2ML 2 MG/ML VIAL ONE (22:36)
[2020-11-04] MEDS ORDERED: FENTANYL CITRATE/PF 100MCG/2 ML INJ IV ONE (23:15)
[2020-11-05] MEDS ORDERED: PROMETHAZINE HC25 M1 PO (00:19)
[2020-11-05] MEDS ORDERED: ZOFRAN4 MG SL (00:19)
[2020-11-05 00:28] VITALS: BP 150/89
== END 2020-11-05 00:28 | disposition home or self-care (01) ==
LOC: FSED 21:52
DX: R10.12 Left upper quadrant pain (principal); R19.7 Diarrhea, unspecified; R11.10 Vomiting, unspecified
CPT/HCPCS: 74176; 80048; 80076; 81003; 85025; 99284; J1885; J2405; J3010

== ENCOUNTER 2024-12-15 21:14 | Emergency (ER) | payer OTHER ==
[~2024-12-15] VITALS: Ht 182.9 cm; Wt 65.8 kg
[~2024-12-15 21:14] MED LIST changes: +PROMETHAZINE HC25 M1 PO; +ZOFRAN4 MG SL
[2024-12-15 22:20] LABS: BASOPHILS # (AUTO) 0.1 (0.0-0.1); BASOPHILS % 0.7 % (0.0-1.0); EOSINOPHILS # (AUTO) 0.3 (0.0-0.4); EOSINOPHILS % 3.8 % (0.0-6.0); HEMATOCRIT 31.5 % (38.2-49.6); HEMOGLOBIN 9.5 g/dL (14.0-18.0); LYMPHOCYTES # (AUTO) 1.6 (1.0-3.2); LYMPHOCYTES % 20.4 % (18.0-39.1); MEAN CORPUSCULAR HEMOGLOBIN 24.3 pg (28-32); MEAN CORPUSCULAR HGB CONC 30.2 g/dL (31-35); MEAN CORPUSCULAR VOLUME 80.6 fL (81-99); MONOCYTES # (AUTO) 0.7 (0.2-0.8); MONOCYTES % 9.3 % (4.4-11.3); NEUTROPHILS % 65.5 % (38.7-80.0); PLATELET COUNT 258 x10e3/uL (140-360); RED BLOOD COUNT 3.91 x10e6/uL (4.3-5.7); RED CELL DISTRIBUTION WIDTH 20.6 % (11.7-14.4); WHITE BLOOD COUNT 7.65 x10e3/uL (4.8-10.8)
[2024-12-15 22:51] LABS: ALANINE AMINOTRANSFERASE 15 IU/L (0-55); ALBUMIN 3.5 g/dL (3.5-5.0); ALBUMIN/GLOBULIN RATIO 1.1 (0.8-2.0); ALKALINE PHOSPHATASE 54 IU/L (40-150); ANION GAP 11.5 mmol/L (8-16); BILIRUBIN,TOTAL 0.8 mg/dL (0.2-1.2); BLOOD UREA NITROGEN 6 mg/dL (7-26); BUN/CREATININE RATIO 6 (6-25); CALCIUM 8.6 mg/dL (8.4-10.2); CARBON DIOXIDE 23 mmol/L (22-29); CHLORIDE 109 mmol/L (98-107); CREATININE, SERUM 1.05 mg/dL (0.72-1.25); EST GLOMERULAR FILTRATION RATE 93 ML/MIN (>=60); GLUCOSE 88 mg/dL (74-118); LIPASE 38 U/L (8-78); POTASSIUM 3.5 mmol/L (3.5-5.1); SODIUM 140 mmol/L (136-145); TOTAL PROTEIN 6.7 g/dL (6.5-8.1)
[2024-12-15 22:59] LABS: TROPONIN I < 0.001 ng/mL (0-0.300)
[2024-12-15 23:14] LABS: CLARITY,URINE CLEAR (CLEAR); COLOR,URINE YELLOW (YELLOW); GLUCOSE, URINE NEGATIVE (NEGATIVE); KETONES,URINE NEGATIVE (NEGATIVE); LEUKOCYTE ESTERASE ,URINE NEGATIVE (NEGATIVE); NITRITE,URINE NEGATIVE (NEGATIVE); PH,URINE 7.5 (5 - 7); PROTEIN,URINE DIPSTICK NEGATIVE (NEGATIVE)
[2024-12-15 23:15] LABS: OPIATES SCREEN,URINE POSITIVE (NEGATIVE); PHENCYCLIDINE SCREEN,URINE NEGATIVE (NEGATIVE)
[2024-12-15 23:16] LABS: AMPHETAMINES SCREEN,URINE NEGATIVE (NEGATIVE); BENZODIAZEPINES SCREEN,URINE POSITIVE (NEGATIVE); CANNABINOIDS SCREEN,URINE NEGATIVE (NEGATIVE); COCAINE SCREEN,URINE NEGATIVE (NEGATIVE); METHADONE SCREEN, URINE NEGATIVE (NEGATIVE)
[2024-12-15 23:17] LABS: BILIRUBIN,URINE NEGATIVE (NEGATIVE); URINE UROBILINOGEN 0.2 mg/dL (0.2 - 1)
[2024-12-15 23:32] LABS: BACTERIA,URINE MODERATE /HPF; EPITHELIAL CELLS,URINE FEW /LPF; RBC,URINE 0-5 /HPF (0-5); WBC,URINE (MAN) 0-5 /HPF (0-5)
[2024-12-16 00:30] VITALS: PULSE 61; RESP 16; TEMP 98.6; O2SAT 100
== END 2024-12-16 00:43 | disposition home or self-care (01) ==
LOC: ER 21:22
DX: R06.02 Shortness of breath (principal); R07.89 Other chest pain; J45.909 Unspecified asthma, uncomplicated; F41.9 Anxiety disorder, unspecified
CPT/HCPCS: 36415; 71045; 80053; 80307; 81001; 83690; 84484; 85025; 93005; 99284